=== PATIENT | female | born 1945 | race Caucasian/White ===

== ENCOUNTER 2018-03-18 03:02 | Emergency (ER) | payer MEDICARE ==
[~2018-03-18] VITALS: Ht 165.1 cm; Wt 68.0 kg
[2018-03-18 03:07] VITALS: BP 194/102; PULSE 87; RESP 18; TEMP 98.5; O2SAT 94
[2018-03-18 03:15] VITALS: BP 194/102; PULSE 87; RESP 18; TEMP 98.5; O2SAT 94
[2018-03-18] MEDS ORDERED: METO50TA PO (03:20)
[2018-03-18] MEDS ORDERED: ATEN25TA PO (03:20)
[2018-03-18] MEDS ORDERED: LORazepam 2 MG/ML VIAL IV PUSH SCH (03:30)
[2018-03-18 03:54] LABS: AUTOMATED NEUTROPHIL # 4.8 TH/MM3 (1.8-7.7); BASOPHIL # 0.3 TH/MM3 (0-0.2); BASOPHIL % 2.9 % (0.0-2.0); EOSINOPHIL # 1.2 TH/MM3 (0-0.4); EOSINOPHIL % 10.6 % (0.0-4.0); HEMATOCRIT 46.5 % (35.0-46.0); HEMOGLOBIN 15.7 GM/DL (11.6-15.3); LYMPH % 39.8 % (9.0-44.0); LYMPHOCYTE # 4.6 TH/MM3 (1.0-4.8); MEAN CELL VOLUME 95.3 FL (80.0-100.0); MEAN CORPUSCULAR HEMOGLOBIN 32.1 PG (27.0-34.0); MEAN CORPUSCULAR HGB CONC 33.7 % (32.0-36.0); MEAN PLATELET VOLUME 8.7 FL (7.0-11.0); MONO % 6.1 % (0.0-8.0); MONOCYTE # 0.7 TH/MM3 (0-0.9); NEUT % 40.6 % (16.0-70.0); PLATELET COUNT 360 TH/MM3 (150-450); RED BLOOD COUNT 4.88 MIL/MM3 (4.00-5.30); RED CELL DISTRIBUTION WIDTH 13.1 % (11.6-17.2); WHITE BLOOD COUNT 11.6 TH/MM3 (4.0-11.0)
[2018-03-18 04:00] VITALS: BP 172/98; PULSE 72; RESP 16; O2SAT 96
[2018-03-18 04:03] LABS: CHLORIDE 105 MEQ/L (98-107); SODIUM (NA) 139 MEQ/L (136-145)
[2018-03-18 04:05] LABS: BICARBONATE 26.2 MEQ/L (21.0-32.0); CALCIUM 9.1 MG/DL (8.5-10.1); GLUCOSE,RANDOM 132 MG/DL (74-106); MAGNESIUM 2.2 MG/DL (1.5-2.5)
[2018-03-18 04:06] LABS: BLOOD UREA NITROGEN 15 MG/DL (7-18)
--- NOTE | 2018-03-18 04:06 | RADRPT ---
EXAM DATE: 03/18/2018 3:51 AM EDT AGE/SEX: 73 years / Female INDICATIONS: Chest pain. CLINICAL DATA: This is the patient's initial encounter. Patient reports that signs and symptoms have been present for 1 day and indicates a pain score of 3/10. MEDICAL/SURGICAL HISTORY: None. None. COMPARISON: No prior exams available for comparison. FINDINGS: PA and lateral views of the chest demonstrate the lungs to be symmetrically aerated without evidence of mass, infiltrate or effusion. The cardiomediastinal contours are unremarkable. Osseous structures are intact. CONCLUSION: No acute cardiopulmonary disease. Electronically signed by: Remi Sprague MD 03/18/2018 4:05 AM EDT
[2018-03-18 04:09] LABS: CREATININE 0.98 MG/DL (0.50-1.00); GLOMERULAR FILTRATION RATE 56 ML/MIN (>89)
[2018-03-18 04:14] LABS: TROPONIN I LESS THAN 0.02 NG/ML (0.02-0.05)
[2018-03-18 04:45] VITALS: BP 126/78
--- NOTE | 2018-03-18 05:21 | PD ---
HPI . Palpitations Chief Complaint: Cardiac Complaint Time Seen by Provider: 03:09 Travel History International Travel<30 days: Yes Contact w/Intl Traveler<30days: [place] Country Traveled to: [place] Traveled to known affect area: No History of Present Illness HPI Patient presents with chief complaint of palpitations and high blood pressure. Onset was just prior to presentation. She indicates that this happens to her frequently. She states she tries to take her blood pressure medication just before bed in order to prevent the symptoms. She states that she awakened shortly after going to sleep with palpitations and ringing in her ears. She attributes her symptoms to elevated blood pressure. She denies chest pain, shortness of breath, nausea or dizziness. There have been no modifying factors. Symptoms are mild. 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 SKIN: warm/dry. Normal color and turgor. HEAD: Normocephalic. Atraumatic. EYES: Pupils equal and round. Extraocular movements are intact. ENT: Mucous membranes pink and moist. NECK: Supple. Full range of motion without pain.. CARDIOVASCULAR: Regular rate and rhythm. Heart sounds normal. RESPIRATORY: No accessory muscle use. Clear to auscultation. Breath sounds equal bilaterally. MUSCULOSKELETAL: No obvious deformities. Normal muscle tone. NEUROLOGICAL: Awake and alert. No obvious cranial nerve deficits. Motor grossly within normal limits. Normal speech. PSYCHIATRIC: Appropriate mood and affect; insight and judgment normal. Data Data Last Documented VS Vital Signs Date Time Temp Pulse Resp B/P (MAP) Pulse Ox O2 Delivery O2 Flow Rate FiO2 03/18/18 04:45 70 16 126/78 (94) 95 03/18/18 04:00 Nasal Cannula 2.00 03/18/18 03:15 98.5 Orders Orders Electrocardiogram (03/18/18 03:12) Basic Metabolic Panel (Bmp) (03/18/18 03:12) Complete Blood Count With Diff (03/18/18 03:12) Magnesium (Mg) (03/18/18 03:12) Troponin I (03/18/18 03:12) Ecg Monitoring (03/18/18 03:12) Iv Access Insert/Monitor (03/18/18 03:12) Oximetry (03/18/18 03:12) Chest, Pa & Lat (03/18/18 03:12) Lorazepam Inj (Ativan Inj) (03/18/18 03:30) Ed Discharge Order (03/18/18 04:38) Labs Laboratory Tests Test 03/18/18 03:21 White Blood Count 11.6 TH/MM3 Red Blood Count 4.88 MIL/MM3 Hemoglobin 15.7 GM/DL Hematocrit 46.5 % Mean Corpuscular Volume 95.3 FL Mean Corpuscular Hemoglobin 32.1 PG Mean Corpuscular Hemoglobin Concent 33.7 % Red Cell Distribution Width 13.1 % Platelet Count 360 TH/MM3 Mean Platelet Volume 8.7 FL Neutrophils (%) (Auto) 40.6 % Lymphocytes (%) (Auto) 39.8 % Monocytes (%) (Auto) 6.1 % Eosinophils (%) (Auto) 10.6 % Basophils (%) (Auto) 2.9 % Neutrophils # (Auto) 4.8 TH/MM3 Lymphocytes # (Auto) 4.6 TH/MM3 Monocytes # (Auto) 0.7 TH/MM3 Eosinophils # (Auto) 1.2 TH/MM3 Basophils # (Auto) 0.3 TH/MM3 CBC Comment DIFF FINAL Differential Comment Blood Urea Nitrogen 15 MG/DL Creatinine 0.98 MG/DL Random Glucose 132 MG/DL Calcium Level 9.1 MG/DL Magnesium Level 2.2 MG/DL Sodium Level 139 MEQ/L Potassium Level 3.4 MEQ/L Chloride Level 105 MEQ/L Carbon Dioxide Level 26.2 MEQ/L Anion Gap 8 MEQ/L Estimat Glomerular Filtration Rate 56 ML/MIN Troponin I LESS THAN 0.02 NG/ML MDM Medical Decision Making Medical Screen Exam Complete: Yes Emergency Medical Condition: Yes Interpretation(s) EKG shows a normal sinus rhythm with no acute ischemic changes. Differential Diagnosis Differential diagnosis of palpitations includes but is not limited to anxiety, SVT, aVF with RVR, VT, sinus tachycardia, PVCs Narrative Course This patient presents with a chief complaint of palpitations, ringing in her ears and high blood pressure. Last Impressions Chest X-Ray 03/18/18 031 Signed Impressions: CONCLUSION: No acute cardiopulmonary disease. CBC & BMP Diagram 03/18/18 03:21 Calcium Level 9.1, Magnesium Level 2.2 Troponin less than 0.02. While awaiting her lab results, the patient was given Ativan. Her blood pressure has normalized and her symptoms have subsided following Ativan. Diagnosis Primary Impression: Heart palpitations Referrals: Brad Haynes MD (PCP) call for appointment Patient Instructions: General Instructions, Heart Palpitations (ED) Departure Forms: Tests/Procedures Disposition: 01 DISCHARGE HOME Condition: Stable Mary Padilla MD Mar 18, 2018 05:21
--- NOTE | 2018-03-18 15:07 | EKG ---
Date Performed: 03/18/2018 Time Performed: 03:22:24 PTAGE: 73 years EKG: Sinus rhythm MARKED LEFT AXIS DEVIATION LOW QRS VOLTAGE IN PRECORDIAL LEADS MINIMAL VOLTAGE CRITERIA FOR LVH, CON NETWORK CABLE INSTALLER NORMAL VARIANT POSSIBLE ANTERIOR MYOCARDIAL INFARCTION ABNORMAL ECG NO PREVIOUS TRACING DOCTOR: Dorian Montenegro Interpretating Date/Time 03/18/2018 15:06:37
== END 2018-03-18 05:29 | disposition home or self-care (01) ==
LOC: PHED 03:02
DX: R00.2 Palpitations (principal); I10 Essential (primary) hypertension; J45.909 Unspecified asthma, uncomplicated; R94.31 Abnormal electrocardiogram [ECG] [EKG]
CPT/HCPCS: 71046; 80048; 83735; 84484; 85025; 93005; 96374; 99285; J2060